=== PATIENT | male | born 1975 | race Asian ===

== ENCOUNTER 2022-08-16 20:06 | Emergency (ER) | payer MEDICAID ==
[~2022-08-16] VITALS: Ht 172.7 cm; Wt 79.4 kg
[2022-08-16 20:49] VITALS: BP_SYST 148
--- NOTE | 2022-08-16 20:59 | NUR ---
WALKED IN REFERRED BY UC TO R/O FACIAL FX S/P SYNCOPAL 4 DAYS AGO PT STATES INITIALLY HE WAS DIZZY AND FELL IN THE BATHROOM/INJURED HIS FACE. DENIES TEJADA, DIZZY, VISION CHANGES. +SUBCONJUNCTIVAL HEMORRHAGE OF RIGHT EYE. NO MEDS TAKEN CONFIGURATION MANAGEMENT ADVISOR
--- NOTE | 2022-08-16 20:59 | NUR ---
Patient triaged and placed in waiting room. VSS and patient appears in no acute distress at this time. Accompanied by SELF, awaiting available bed, and MD notified of need for MSE.
--- NOTE | 2022-08-16 21:15 | NUR ---
Patient ambulatory to bed 3 for evaluation and treatment
--- NOTE | 2022-08-16 21:16 | NUR ---
Patient to ER bed 03 to gown for evaluation. Side rails up. Report given to ABDELRAHMAN ZAYAS
--- NOTE | 2022-08-16 21:36 | NUR ---
ER at bedside examining patient.
[2022-08-16] MEDS ORDERED: NACL 0.9% 1,000 ML IV ONE (22:30)
[2022-08-16] MEDS ORDERED: AMPICILLIN SODIUM/SULBACTAM NA 3 GM in NS 100 ML IV ONE (22:30)
[2022-08-16] MEDS ORDERED: AMPICILLIN SODIUM/SULBACTAM NA 3 GM VIAL ONE (22:40)
[2022-08-16] MEDS ORDERED: AMOXICILLIN/CLAVULANATE POTASSIUM 250 MG/5 ML, 75 ML BTL PO ONE (22:45)
[2022-08-16] MEDS ORDERED: AMOXICILLIN/CLAVULANATE POTASSIUM 250 MG/5 ML, 75 ML BTL ONE (22:50)
[2022-08-16 23:19] LABS: BASOPHILS # (AUTO) 0.1 K/uL (0.0-0.2); BASOPHILS % (AUTO) 1.9 % (0.0-2.0); EOSINOPHILS # (AUTO) 0.1 K/uL (0.0-0.4); EOSINOPHILS % (AUTO) 2.2 % (0.0-4.0); HEMATOCRIT 45.8 % (36-54); HEMOGLOBIN 15.5 g/dL (14.0-18.0); LYMPHOCYTES # (AUTO) 1.9 K/uL (1.0-5.5); LYMPHOCYTES % (AUTO) 30.6 % (20.5-51.5); MEAN CORPUSCULAR HEMOGLOBIN 29 pg (27-31); MEAN CORPUSCULAR HGB CONC 34 % (32-36); MEAN CORPUSCULAR VOLUME 85 fL (79.0-98.0); MONOCYTES # (AUTO) 0.4 K/uL (0.0-1.0); MONOCYTES % (AUTO) 6.6 % (1.7-9.3); NEUTROPHILS # (AUTO) 3.6 K/uL (1.8-7.7); NEUTROPHILS % (AUTO) 58.7 % (40.0-70.0); PLATELET COUNT (AUTO) 252 K/uL (130-430); RED CELL DISTRIBUTION WIDTH 12.7 % (9.0-15.0); WHITE BLOOD COUNT (AUTO) 6.1 K/uL (4.8-10.8)
[2022-08-16 23:21] LABS: ANION GAP 6 (5-15); CALCIUM 8.7 mg/dL (8.4-11.0); CHLORIDE 101 mmol/L (98-107); GLUCOSE 98 mg/dL (70-99); POTASSIUM 3.5 mmol/L (3.5-5.1); UREA NITROGEN, BLOOD 11 mg/dL (8-21)
[2022-08-16 23:30] LABS: ALANINE AMINOTRANSFERASE 98 U/L (12-78); ALBUMIN 4.3 g/dL (3.4-4.8); ASPARTATE AMINOTRANSFERASE 40 U/L (10-37); TOTAL BILIRUBIN 0.3 mg/dL (0.0-1.0)
[2022-08-16 23:41] LABS: ALCOHOL, BLOOD < 3 mg/dL (<10); GFR AFRICAN AMERICAN 94 mL/min (>90)
[2022-08-17] MEDS ORDERED: AUG875 PO (00:39)
[2022-08-17] MEDS ORDERED: IBUP-1969 PO (00:39)
[2022-08-17 00:49] VITALS: BP_SYST 152
[2022-08-17 00:50] LABS: ERYTHROCYTE SEDIMENTATION RATE 2 MM/HR (0-15)
== END 2022-08-17 00:49 | disposition home or self-care (01) ==
LOC: SED 20:06
DX: S02.40EA Zygomatic fracture, right side, initial encounter for closed fracture (principal); S02.31XA Fracture of orbital floor, right side, initial encounter for closed fracture; H11.31 Conjunctival hemorrhage, right eye; R55 Syncope and collapse; Z79.899 Other long term (current) drug therapy; W22.8XXA Striking against or struck by other objects, initial encounter; Y93.89 Activity, other specified; Y92.89 Other specified places as the place of occurrence of the external cause; Y99.8 Other external cause status
CPT/HCPCS: 99285; 70450; 71045; 80053; 85025; 85651; 87040; 84484; 36415; 93005; 70486; 76376; 83605; G0482; J7030; J0295